=== PATIENT | male | born 1990 | race Caucasian/White ===

== ENCOUNTER 2018-12-16 14:56 | Emergency (ER) | payer BC ==
[~2018-12-16] VITALS: Ht 182.9 cm; Wt 73.0 kg
[2018-12-16 15:10] VITALS: BP 133/80
[2018-12-16] MEDS ORDERED: CYCL-1 PO (16:10)
[2018-12-16] MEDS ORDERED: AMOX-580 PO (16:10)
[2018-12-16] MEDS ORDERED: LIDOcaine 5% patch TP ONE (16:30)
== END 2018-12-16 16:37 | disposition home or self-care (01) ==
LOC: ER 14:57
DX: M54.6 Pain in thoracic spine (principal); J01.00 Acute maxillary sinusitis, unspecified
CPT/HCPCS: 99283